=== PATIENT | female | born 1945 | race Caucasian/White ===

== ENCOUNTER 2024-11-04 10:39 | Outpatient (CLI) | payer MEDICARE, SELFPAY | END 2024-11-04 10:40 | disposition home or self-care (01) | PROVIDERS: PCP Family Medicine; Visit Provider Family Medicine | DX: M54.16 Radiculopathy, lumbar region (principal); M51.369 Other intervertebral disc degeneration, lumbar region without mention of lumbar back pain or lower extremity pain | CPT/HCPCS: 62323; J0702; Q9966 ==

== ENCOUNTER 2025-01-30 10:31 | Outpatient (CLI) | payer MEDICARE, SELFPAY ==
--- NOTE | 2025-01-30 12:03 | W.ANESCHARGE ---
Anesthesia Charges Start Date/Time Anesthesia Start Date: 01/30/25 Anesthesia Start Time: 11:54 Stop Date/Time Anesthesia Stop Date: 01/30/25 Anesthesia Stop Time: 12:20 Summary Extremes of Age - Over 70 or under 1: MDA Coding CPT Codes Additional Codes: Summary - Extremes of Age - Over 70 or under 1: MDA ([id number])
--- NOTE | 2025-01-30 12:40 | P.ANES_ITS ---
Anesthesia Charges Start Date/Time Anesthesia Start Date: 01/30/25 Anesthesia Start Time: 11:54 Stop Date/Time Anesthesia Stop Date: 01/30/25 Anesthesia Stop Time: 12:20 Summary Extremes of Age - Over 70 or under 1: GLASS BREAKER Coding CPT Codes CPT Codes: PARMINDER LWR INTST SCR COLSC - 58461 ([id number]) P2 - PATIENT W/MILD SYST DISEASE, QX - GLASS BREAKER SVC W/ MD MED DIRECTION, QK - MARKETING TEAM LEAD 2-4 CNCRNT ANES PROC Additional Codes: Summary - Extremes of Age - Over 70 or under 1: GLASS BREAKER ([id number])
--- NOTE | 2025-01-30 12:40 | W.ANESCHARGE ---
Anesthesia Charges Start Date/Time Anesthesia Start Date: 01/30/25 Anesthesia Start Time: 11:54 Stop Date/Time Anesthesia Stop Date: 01/30/25 Anesthesia Stop Time: 12:20 Summary Extremes of Age - Over 70 or under 1: MULTIMEDIA PROJECT MANAGER Coding CPT Codes CPT Codes: PARMINDER LWR INTST SCR COLSC - 40827 ([id number]) P2 - PATIENT W/MILD SYST DISEASE, QX - MULTIMEDIA PROJECT MANAGER SVC W/ MD MED DIRECTION, QK - BIOPHYSICS TEACHER 2-4 CNCRNT ANES PROC Additional Codes: Summary - Extremes of Age - Over 70 or under 1: MULTIMEDIA PROJECT MANAGER ([id number])
--- NOTE | 2025-02-17 10:49 | P.ANES_ITS ---
Anesthesia Charges Start Date/Time Anesthesia Start Date: 01/30/25 Anesthesia Start Time: 11:54 Stop Date/Time Anesthesia Stop Date: 01/30/25 Anesthesia Stop Time: 12:20 Summary Extremes of Age - Over 70 or under 1: MDA Coding CPT Codes CPT Codes: ANES LWR INTST SCR COLSC - 86757 ([id number]) P2 - PATIENT W/MILD SYST DISEASE, QK - SURVEYOR HYDROGRAPHIC 2-4 CNCRNT ANES PROC, QX - ASSISTANT PROPERTY MANAGER SVC W/ MD MED DIRECTION Additional Codes: Summary - Extremes of Age - Over 70 or under 1: MDA ([id number])
--- NOTE | 2025-02-17 10:49 | W.ANESCHARGE ---
Anesthesia Charges Start Date/Time Anesthesia Start Date: 01/30/25 Anesthesia Start Time: 11:54 Stop Date/Time Anesthesia Stop Date: 01/30/25 Anesthesia Stop Time: 12:20 Summary Extremes of Age - Over 70 or under 1: MDA Coding CPT Codes CPT Codes: ANES LWR INTST SCR COLSC - 37840 ([id number]) P2 - PATIENT W/MILD SYST DISEASE, QK - HAMMERSMITH HELPER 2-4 CNCRNT ANES PROC, QX - PINKED EDGE SEWING MACHINE OPERATOR SVC W/ MD MED DIRECTION Additional Codes: Summary - Extremes of Age - Over 70 or under 1: MDA ([id number])
== END 2025-01-30 10:32 | disposition home or self-care (01) ==
PROVIDERS: PCP Family Medicine; Visit Provider Internal Medicine Gastroenterology
DX: Z12.11 Encounter for screening for malignant neoplasm of colon (principal); Z86.0101 Personal history of adenomatous and serrated colon polyps; K57.30 Diverticulosis of large intestine without perforation or abscess without bleeding
CPT/HCPCS: 00812; 45378; 99100; J2704

== ENCOUNTER 2025-02-03 10:12 | Outpatient (CLI) | payer MEDICARE, SELFPAY | END 2025-02-03 10:13 | disposition home or self-care (01) | LOC: INJ CL 10:13 | PROVIDERS: PCP Family Medicine; Visit Provider Family Medicine | DX: M53.3 Sacrococcygeal disorders, not elsewhere classified (principal) | CPT/HCPCS: 27096; J0702; Q9966 ==

== ENCOUNTER 2025-07-08 13:45 | Outpatient (RCR) | payer MEDICARE, SELFPAY | END 2025-08-19 13:05 | disposition home or self-care (01) | PROVIDERS: PCP Family Medicine; Visit Provider Physical Medicine & Rehabilitation | DX: M54.16 Radiculopathy, lumbar region (principal); M46.1 Sacroiliitis, not elsewhere classified; Z51.89 Encounter for other specified aftercare | CPT/HCPCS: 97032; 97110; 97140; 97161 ==

== ENCOUNTER 2025-09-11 09:16 | Outpatient (CLI) | payer MEDICARE, SELFPAY ==
--- NOTE | 2025-09-11 10:16 | P.ANES_ITS ---
Anesthesia Charges Start Date/Time Anesthesia Start Date: 09/11/25 Anesthesia Start Time: 09:58 Stop Date/Time Anesthesia Stop Date: 09/11/25 Anesthesia Stop Time: 10:18 Summary Extremes of Age - Over 70 or under 1: MDA Coding CPT Codes CPT Codes: ANES UPR GI NDSC PX NOS - 96848 ([id number]) P2 - PATIENT W/MILD SYST DISEASE, QK - INDUSTRIAL MACHINE OPERATOR 2-4 CNCRNT ANES PROC, QX - ADMIN DIR SVC W/ MD MED DIRECTION Additional Codes: Summary - Extremes of Age - Over 70 or under 1: MDA ([id number])
--- NOTE | 2025-09-11 10:16 | W.ANESCHARGE ---
Anesthesia Charges Start Date/Time Anesthesia Start Date: 09/11/25 Anesthesia Start Time: 09:58 Stop Date/Time Anesthesia Stop Date: 09/11/25 Anesthesia Stop Time: 10:18 Summary Extremes of Age - Over 70 or under 1: MDA Coding CPT Codes CPT Codes: ANES UPR GI NDSC PX NOS - 80826 ([id number]) P2 - PATIENT W/MILD SYST DISEASE, QK - AUTOMATIC PINSETTER MECHANIC 2-4 CNCRNT ANES PROC, QX - EGGS INSPECTOR SVC W/ MD MED DIRECTION Additional Codes: Summary - Extremes of Age - Over 70 or under 1: MDA ([id number])
--- NOTE | 2025-09-11 10:24 | P.ANES_ITS ---
Anesthesia Charges Start Date/Time Anesthesia Start Date: 09/11/25 Anesthesia Start Time: 09:58 Stop Date/Time Anesthesia Stop Date: 09/11/25 Anesthesia Stop Time: 10:18 Summary Extremes of Age - Over 70 or under 1: SAILBOAT CAPTAIN Coding CPT Codes CPT Codes: ANES UPR GI NDSC PX NOS - 48932 ([id number]) P2 - PATIENT W/MILD SYST DISEASE, QK - MIME ARTIST 2-4 CNCRNT ANES PROC, QX - SAILBOAT CAPTAIN SVC W/ MD MED DIRECTION Additional Codes: Summary - Extremes of Age - Over 70 or under 1: SAILBOAT CAPTAIN ([id number])
--- NOTE | 2025-09-11 10:24 | W.ANESCHARGE ---
Anesthesia Charges Start Date/Time Anesthesia Start Date: 09/11/25 Anesthesia Start Time: 09:58 Stop Date/Time Anesthesia Stop Date: 09/11/25 Anesthesia Stop Time: 10:18 Summary Extremes of Age - Over 70 or under 1: ADOBE MAKER Coding CPT Codes CPT Codes: ANES UPR GI NDSC PX NOS - 29485 ([id number]) P2 - PATIENT W/MILD SYST DISEASE, QK - MEDICAL INSURANCE VERIFIER 2-4 CNCRNT ANES PROC, QX - ADOBE MAKER SVC W/ MD MED DIRECTION Additional Codes: Summary - Extremes of Age - Over 70 or under 1: ADOBE MAKER ([id number])
== END 2025-09-11 09:17 | disposition home or self-care (01) ==
LOC: OP CLINIC 09:17
PROVIDERS: PCP Family Medicine; Visit Provider Internal Medicine Gastroenterology
DX: R10.13 Epigastric pain (principal); K21.00 Gastro-esophageal reflux disease with esophagitis, without bleeding; R93.3 Abnormal findings on diagnostic imaging of other parts of digestive tract
CPT/HCPCS: 00731; 43239; 99100; J2704; J3490